=== PATIENT | male | born 1985 | race African-American/Black ===

== ENCOUNTER 2018-08-10 09:31 | Emergency (ER) | payer MEDICAID ==
[~2018-08-10] VITALS: Ht 180.3 cm; Wt 99.8 kg
[2018-08-10 09:26] VITALS: BP 140/85
[~2018-08-10 09:31] MED LIST: NKM
[2018-08-10] MEDS: HYDROcodone/Acetamin 5/325 tab ORAL ONE ×2 (09:56→10:10)
[2018-08-10] MEDS ORDERED: Ketorolac 60mg Inj IM ONE (10:00)
--- NOTE | 2018-08-10 10:03 | Emergency Room Report ---
History of Present Illness General Chief Complaint: Headache Source: Patient Present Illness [facility] Patient present by paramedics for reports and complaints of headache Patient reports that he has been taking pain medication and Excedrin for most of his life He has had other exams and workups however has not been able to be diagnosed with a specific diagnosis however he does used the term migraine headache to describe his headaches Patient reports that he has not taken Excedrin for the past 2 months The pain has slowly progressed over the past day Denies any neck pain and denies any chest pain or shortness of breath Patient does have his classic migraine with, photosensitivity, and pain diffusely from the occipital region to the top of the head Denies any focal weakness Allergies: Coded Allergies: No Known Allergies (Unverified , 08/10/18) Patient History Past Medical History: see triage record Pertinent Family History: none Reviewed Nursing Documentation: PMH: Agreed; PSxH: Agreed Nursing Documentation-PMH Past Medical History: No Stated History Review of Systems All Other Systems: negative except mentioned in HPI Physical Exam Vital Signs Date Time Temp Pulse Resp B/P (MAP) Pulse Ox O2 Delivery O2 Flow Rate FiO2 08/10/18 09:22 98.1 56 16 140/85 99 Room Air Sp02 EP Interpretation: reviewed, normal General Appearance: no apparent distress Head: normocephalic, atraumatic Eyes: bilateral eye other - Patient kept his eyes covered throughout the exam even with the lights turned off. Patient holding his hands in front of his eyes. He is aware that my exam is limited if i am not able to look at his pupils ENT: hearing grossly normal, normal pharynx Neck: supple Respiratory: lungs clear Cardiovascular #1: normal peripheral pulses Gastrointestinal: non tender, soft Genitourinary: no CVA tenderness Musculoskeletal: normal inspection Neurologic: alert, oriented x3, responsive Skin: normal color, no rash Lymphatic: no adenopathy Medical Decision Making Diagnostic Impression: Primary Impression: Headache ER Course Multiple differentials including but not limited to intracranial, neurological, neurosurgical, pathology including infectious pathology also entertained Patient has had a fairly chronic history of this type of headache Denies any change with his underlying symptoms The headache has slowly progressed and was not described as a thunderclap presentation I did not feel patient met initial emergency criteria for imaging and pain medications were provided Later in the evaluation patient's has presented, reports that she feels the patient's symptoms are being 'blown off' It was discussed with the patient had a full neurological evaluation, and patient appeared to be having exacerbation of his underlying migraine headaches that he has had since childhood. Imaging was obtained does not show any acute disease Patient himself feels well and improved Patient's however continues to be verbally argumentative and agitated She is agreeable that the patient does require improved outpatient follow-up, it was also discussed regarding different medications and attempt of imitrex Patient also reports that he has been recently 'vaping' with marijuana initially appeared to have some improvement however has not helped much recently also reports patient has had decreased sleep, working longer hours and this could also be contributing to the patient's discomfort CT/MRI/US Diagnostic Results CT/MRI/US Diagnostic Results : Impression CT headno acute disease Last Vital Signs Date Time Temp Pulse Resp B/P (MAP) Pulse Ox O2 Delivery O2 Flow Rate FiO2 08/10/18 09:26 98.1 68 16 140/85 99 Room Air Status: improved Disposition: HOME, SELF-CARE Condition: Improved Scripts Sumatriptan Succinate* (IMITREX*) 50 Mg Tablet 50 MG ORAL DAILY PRN MIGRAINE, #15 TAB Prov: Prabhu Viveros DO 08/10/18 Referrals: [facility] (PCP) Additional Instructions: Patient is provided with the discharge instructions notified to follow up with primary doctor in the next 2-3 days otherwise return to the er with any worsening symptoms. Please note that this report is being documented using [employer]AG[employer] technology. This can lead to erroneous entry secondary to incorrect interpretation by the dictating instrument. Prabhu Viveros DO Aug 10, 2018 10:03
[2018-08-10] MEDS ORDERED: IMITREX50 MG ORAL (11:43)
[2018-08-10 11:47] VITALS: BP 140/85
== END 2018-08-10 11:47 | disposition home or self-care (01) ==
LOC: EDBD 09:31 → EMR 09:41
DX: R51 Headache (principal)
CPT/HCPCS: 70450; 96360; 96372; 99284